=== PATIENT | female | born 1955 | race Caucasian/White ===

== ENCOUNTER 2022-08-25 16:28 | Inpatient (IN) ==
[2022-08-25] MEDS ORDERED: ONDANSETRON 4 MG/2 ML VIAL IV PRN (16:32)
[2022-08-25] MEDS ORDERED: ACETAMINOPHEN 325 MG TABLET PO PRN (16:32)
[2022-08-25] MEDS ORDERED: ALUMINUM/MAGNES/SIMETH MAX STR 30 ML UDCUP PO PRN (16:32)
[2022-08-25] MEDS ORDERED: ZALEPLON 5 MG CAPSULE PO PRN (16:32)
[2022-08-25 17:51] LABS: Basophils % 0.3 % (0.0-0.8); Eosinophils # 0.2 10*3/uL (0.0-0.87); Eosinophils % 2.6 % (0.00-10.9); Hematocrit 39.3 VOL% (35.7-47.0); Hemoglobin 12.6 GM/DL (12.0-16.0); Immature Granulocytes % 0.6 %; Immature Granulocytes Absolute 0.05 #; Lymphocytes # 2.9 10*3/uL (1.4-4.0); Lymphocytes % 32.5 % (21.3-54.2); Mean Corpuscular HGB Conc 32.1 GM/DL (32-36); Mean Corpuscular Volume 93.1 FL (87-102); Mean Platelet Volume 8.9 FL (9.6-12.0); Monocytes % 10.9 % (1.7-12.7); Neutrophils % 53.1 % (38.7-73.9); Platelet Count 328 T/CUMM (130-400); Red Blood Count 4.22 MC/CUMM (3.8-5.5); Red Cell Distribution Width 14.7 % (9.3-17.3)
[2022-08-25] MEDS: DILTIAZEM INJ 100 MG in SODIUM CHLORIDE 0.9% 100 ML IV SCH (18:01)
[2022-08-25] MEDS: FUROSEMIDE 40 MG/4 ML VIAL IV SCH (18:01)
[2022-08-25 18:19] LABS: Bilirubin,Total 0.4 MG/DL (0.20-1.00); Calcium 8.8 MG/DL (8.5-10.1); Osmolality,Calculated 286.1 MOS/KG (273-304); Potassium 3.9 MMOL/L (3.5-5.1)
[2022-08-25] MEDS ORDERED: ROSUVASTATIN 20 MG TABLET PO SCH (21:00)
[2022-08-25] MEDS: OXYBUTYNIN XL 10 MG TABLET PO SCH (21:20)
[2022-08-25] MEDS: APIXABAN 5 MG TABLET PO SCH (21:20)
[2022-08-25] MEDS: METOPROLOL SUCCINATE XL 25 MG TABLET PO SCH (21:20)
[2022-08-25] MEDS: BRINZOLAMIDE 1% OPH SUSP 10 ML BOTTLE BOTH EYES SCH (23:08)
[2022-08-26 05:53] LABS: Basophils % 0.4 % (0.0-0.8); Eosinophils # 0.3 10*3/uL (0.0-0.87); Eosinophils % 3.8 % (0.00-10.9); Hematocrit 38.2 VOL% (35.7-47.0); Hemoglobin 12.1 GM/DL (12.0-16.0); Immature Granulocytes % 0.5 %; Immature Granulocytes Absolute 0.04 #; Lymphocytes # 2.5 10*3/uL (1.4-4.0); Lymphocytes % 30.7 % (21.3-54.2); Mean Corpuscular HGB Conc 31.7 GM/DL (32-36); Mean Corpuscular Volume 93.2 FL (87-102); Monocytes # 0.9 10*3/uL (0.11-0.8); Monocytes % 11.1 % (1.7-12.7); Neutrophils % 53.5 % (38.7-73.9); Platelet Count 311 T/CUMM (130-400); Red Cell Distribution Width 14.6 % (9.3-17.3); White Blood Count 8.2 T/CUMM (4-12)
[2022-08-26 06:21] LABS: Calcium 8.3 MG/DL (8.5-10.1); Osmolality,Calculated 289.8 MOS/KG (273-304); Potassium 3.6 MMOL/L (3.5-5.1); Risk Ratio 2.26; Thyroid Stimulating Hormone 1.88 uIU/ml (0.358-3.74); VLDL Cholesterol 19.8 MG/DL
[2022-08-26] MEDS: BRINZOLAMIDE 1% OPH SUSP 10 ML BOTTLE BOTH EYES SCH ×2 (08:20→20:49)
[2022-08-26] MEDS: PANTOPRAZOLE 40 MG TABLET PO SCH (08:21)
[2022-08-26] MEDS: APIXABAN 5 MG TABLET PO SCH ×2 (08:21→20:48)
[2022-08-26] MEDS: METOPROLOL SUCCINATE XL 25 MG TABLET PO SCH (08:21)
[2022-08-26] MEDS: FUROSEMIDE 40 MG/4 ML VIAL IV SCH (08:21)
[2022-08-26] MEDS ORDERED: POTASSIUM CHLORIDE 20 MEQ TABLET PO ONE (08:34)
[2022-08-26] MEDS: DILTIAZEM 60 MG TABLET PO SCH ×4 (10:44→20:48)
[2022-08-26] MEDS: NEBIVOLOL 10 MG TABLET PO SCH (10:44)
[2022-08-26] MEDS: ASPIRIN CHEW 81 MG TABLET PO SCH (10:44)
[2022-08-26] MEDS: CALCIUM (CARBONATE)/VITAMIN D 600 MG-400 UNIT TABLET PO SCH (10:45)
[2022-08-26] MEDS: DILTIAZEM INJ 100 MG in SODIUM CHLORIDE 0.9% 100 ML IV SCH (17:22)
[2022-08-26] MEDS: OXYBUTYNIN XL 10 MG TABLET PO SCH (20:48)
[2022-08-26] MEDS: ROSUVASTATIN 20 MG TABLET PO SCH (20:48)
[2022-08-27 05:32] LABS: Basophils % 0.4 % (0.0-0.8); Eosinophils # 0.3 10*3/uL (0.0-0.87); Eosinophils % 3.8 % (0.00-10.9); Hematocrit 39.4 VOL% (35.7-47.0); Hemoglobin 12.6 GM/DL (12.0-16.0); Immature Granulocytes % 0.6 %; Immature Granulocytes Absolute 0.05 #; Lymphocytes # 2.7 10*3/uL (1.4-4.0); Lymphocytes % 34.3 % (21.3-54.2); Mean Corpuscular Volume 94.3 FL (87-102); Mean Platelet Volume 8.7 FL (9.6-12.0); Monocytes # 0.9 10*3/uL (0.11-0.8); Monocytes % 10.9 % (1.7-12.7); Platelet Count 293 T/CUMM (130-400); Red Blood Count 4.18 MC/CUMM (3.8-5.5); Red Cell Distribution Width 14.8 % (9.3-17.3); White Blood Count 7.8 T/CUMM (4-12)
[2022-08-27 05:50] LABS: Calcium 8.4 MG/DL (8.5-10.1); Osmolality,Calculated 288.8 MOS/KG (273-304); Potassium 3.9 MMOL/L (3.5-5.1)
[2022-08-27] MEDS: APIXABAN 5 MG TABLET PO SCH ×2 (09:11→21:03)
[2022-08-27] MEDS: BRINZOLAMIDE 1% OPH SUSP 10 ML BOTTLE BOTH EYES SCH ×2 (09:11→21:03)
[2022-08-27] MEDS: ASPIRIN CHEW 81 MG TABLET PO SCH (09:11)
[2022-08-27] MEDS: CALCIUM (CARBONATE)/VITAMIN D 600 MG-400 UNIT TABLET PO SCH (09:11)
[2022-08-27] MEDS: NEBIVOLOL 10 MG TABLET PO SCH (09:11)
[2022-08-27] MEDS: DILTIAZEM 60 MG TABLET PO SCH ×4 (09:11→21:03)
[2022-08-27] MEDS: PANTOPRAZOLE 40 MG TABLET PO SCH (09:12)
[2022-08-27] MEDS: FUROSEMIDE 40 MG/4 ML VIAL IV SCH (09:13)
[2022-08-27] MEDS: DILTIAZEM INJ 100 MG in SODIUM CHLORIDE 0.9% 100 ML IV SCH (18:06)
[2022-08-27] MEDS: ROSUVASTATIN 20 MG TABLET PO SCH (21:03)
[2022-08-27] MEDS: OXYBUTYNIN XL 10 MG TABLET PO SCH (21:03)
[2022-08-28 05:00] LABS: Basophils % 0.4 % (0.0-0.8); Eosinophils # 0.3 10*3/uL (0.0-0.87); Eosinophils % 3.3 % (0.00-10.9); Hematocrit 39.6 VOL% (35.7-47.0); Hemoglobin 12.5 GM/DL (12.0-16.0); Immature Granulocytes % 0.4 %; Immature Granulocytes Absolute 0.03 #; Lymphocytes # 2.8 10*3/uL (1.4-4.0); Lymphocytes % 33.5 % (21.3-54.2); Mean Corpuscular HGB Conc 31.6 GM/DL (32-36); Mean Corpuscular Volume 94.5 FL (87-102); Mean Platelet Volume 9.1 FL (9.6-12.0); Monocytes # 0.9 10*3/uL (0.11-0.8); Monocytes % 11.2 % (1.7-12.7); Neutrophils % 51.2 % (38.7-73.9); Platelet Count 311 T/CUMM (130-400); Red Blood Count 4.19 MC/CUMM (3.8-5.5); Red Cell Distribution Width 14.7 % (9.3-17.3); White Blood Count 8.4 T/CUMM (4-12)
[2022-08-28 05:14] LABS: Osmolality,Calculated 283.3 MOS/KG (273-304)
[2022-08-28] MEDS ORDERED: propofoL 200 MG/20 ML VIAL IV ONE (09:45)
[2022-08-28] MEDS ORDERED: LIDOCAINE 2% 5 ML VIAL ONE (09:45)
[2022-08-28] MEDS: APIXABAN 5 MG TABLET PO SCH (10:27)
[2022-08-28] MEDS: PANTOPRAZOLE 40 MG TABLET PO SCH (10:27)
[2022-08-28] MEDS: ASPIRIN CHEW 81 MG TABLET PO SCH (10:27)
[2022-08-28] MEDS: NEBIVOLOL 10 MG TABLET PO SCH (10:27)
[2022-08-28] MEDS: BRINZOLAMIDE 1% OPH SUSP 10 ML BOTTLE BOTH EYES SCH (10:28)
[2022-08-28] MEDS: FUROSEMIDE 40 MG/4 ML VIAL IV SCH (10:28)
[2022-08-28] MEDS: CALCIUM (CARBONATE)/VITAMIN D 600 MG-400 UNIT TABLET PO SCH (10:31)
[2022-08-28 10:53] VITALS: BP 146/83
[2022-08-28] MEDS: DILTIAZEM 60 MG TABLET PO SCH (14:43)
[2022-08-29] MEDS ORDERED: DILTIAZEM CD 240 MG CAPSULE PO SCH (09:00)
== END 2022-08-28 14:36 | disposition home or self-care (01) | DRG 291 ==
LOC: N.TELES 16:51
PROVIDERS: ADMIT Internal Medicine Cardiovascular Disease; ATTEND Internal Medicine Cardiovascular Disease